=== PATIENT | female | born 1955 | race Caucasian/White ===

== ENCOUNTER 2018-01-21 08:05 | Outpatient (CLI) | payer MEDICARE, MEDICAID ==
[~2018-01-21 08:05] MED LIST: ARIP30TA7 PO; ASPI-529 PO; BUSP10TA16 PO; CALC-506 PO; CHLO25TA2 PO; IBUP-1984 PO; IRBE75TA30 PO; METF500T7 PO; SIMV20TA5 PO; SITA1TBM4 PO; SYN0.112T PO; TRAZ150T78 PO; VENL75CA61 PO
== END 2018-01-21 23:59 | disposition home or self-care (01) ==
LOC: CAR 08:05
DX: F33.3 Major depressive disorder, recurrent, severe with psychotic symptoms (principal); I10 Essential (primary) hypertension; E11.9 Type 2 diabetes mellitus without complications; Z79.899 Other long term (current) drug therapy
CPT/HCPCS: 93005

== ENCOUNTER 2020-12-10 11:45 | Emergency (ER) | payer MEDICARE, MEDICAID ==
[~2020-12-10] VITALS: Ht 162.6 cm; Wt 105.6 kg
[~2020-12-10 11:45] MED LIST changes: +CLIN150C8 PO; +METF-900 PO; -METF500T7 PO; +SIMV-42 PO; -SIMV20TA5 PO
[2020-12-10 13:45] VITALS: BP 155/96
== END 2020-12-10 14:42 | disposition home or self-care (01) ==
LOC: ER 11:46
DX: L25.3 Unspecified contact dermatitis due to other chemical products (principal); M79.641 Pain in right hand; E78.00 Pure hypercholesterolemia, unspecified; I10 Essential (primary) hypertension; E11.9 Type 2 diabetes mellitus without complications; E03.9 Hypothyroidism, unspecified; G89.29 Other chronic pain; F32.9 Major depressive disorder, single episode, unspecified; Z90.710 Acquired absence of both cervix and uterus; Z98.51 Tubal ligation status; Z90.89 Acquired absence of other organs; Z88.8 Allergy status to other drugs, medicaments and biological substances; Z88.1 Allergy status to other antibiotic agents; Z79.82 Long term (current) use of aspirin; Z79.2 Long term (current) use of antibiotics; Z79.899 Other long term (current) drug therapy
CPT/HCPCS: 99283

== ENCOUNTER 2021-10-22 07:08 | Inpatient (IN) | payer MEDICARE, MEDICAID ==
[~2021-10-22] VITALS: Ht 157.5 cm; Wt 92.3 kg
[2021-10-22] MEDS ORDERED: acetaminophen 325mg tablet PO PRN (07:35)
[2021-10-22] MEDS ORDERED: loperamide 2mg capsule PO PRN (07:35)
[2021-10-22] MEDS ORDERED: mag hydrox/Alum hydrox/simeth 30ml oral suspension PO PRN (07:35)
[2021-10-22] MEDS ORDERED: magnesium hydroxide 30ml (MOM) UD suspension PO PRN (07:35)
[2021-10-22 09:25] VITALS: BP 199/92
--- NOTE | 2021-10-22 09:57 | NUR ---
Admission note: Pt admitted today on 5150 from [facility] for gravely disabled. Pt was found on a street corner in [place] under a blanket. She is unable to report who she is, what city she is in or how she arrived. She was dehydrated and is not able to articulate and plan for food, clothing or group home. Pt has history of schizophrenia. Pt at [facility] was not eating or drinking.l
[2021-10-22] MEDS ORDERED: POTA-197 PO (11:32)
[2021-10-22] MEDS ORDERED: ARIP10TA15 PO (11:32)
[2021-10-22] MEDS ORDERED: BUPR-353 PO (11:32)
[2021-10-22] MEDS ORDERED: TRAZ-256 PO (11:32)
[2021-10-22] MEDS ORDERED: SITA1TAB6 PO (11:32)
[2021-10-22] MEDS ORDERED: ibuprofen tablet 400 MG TABLET PO PRN (11:55)
[2021-10-22] MEDS ORDERED: busPIRone 5mg tablet PO PRN (11:55)
--- NOTE | 2021-10-22 13:15 | NUR ---
Daughter and emergency contact:
[2021-10-22] MEDS: metFORMIN 500mg tablet PO SCH (17:37)
[2021-10-22 19:43] VITALS: BP 141/78
[2021-10-22] MEDS ORDERED: non-formulary drug (Sitagliptin Phos/Metformin HCl (Janumet 50-1,000 mg Tablet) 1 TAB) PO SCH (20:00)
[2021-10-22] MEDS: lactobacillus rhamnosus 10,000 MMU CELLS/CAPSULE PO SCH (20:46)
[2021-10-22] MEDS: traZODone 50mg tablet PO SCH (20:46)
[2021-10-22] MEDS: atorvastatin 10mg tablet PO SCH (20:46)
[2021-10-22] MEDS: buPROPion SR 150mg tablet PO SCH (20:46)
[2021-10-22] MEDS: nitrofuran monohydrate/nitrofuran macrocrysal 100 MG (MacroBID) capsule PO SCH (20:47)
[2021-10-22] MEDS: acetaminophen 325mg tablet PO PRN (20:57)
--- NOTE | 2021-10-22 23:12 | NUR ---
Nursing Progress Note: Legal hold: 515 Client on involuntary status for GD Report received from HARDEEP Clements with use of SBAR Why are they here: Pt admitted today on 5150 from [facility] for gravely disabled. Pt was found on a street corner in [place] under a blanket. She is unable to report who she is, what city she is in or how she arrived. She was dehydrated and is not able to articulate and plan for food, clothing or group home. Pt has history of schizophrenia. Pt at [facility] was not eating or drinking. Assessment What has happened this shift: Patient sitting in her room at the beginning of shift. Pleasant and cooperative with care; compliant with medication. HS BS 147. Patient is oriented to person, place and event but explained she did not know how she had gotten to the freeway where she was found. Patient denies SI, HI, A/VH. Patient reported, "I don't know how I'm going to pay for this," talking about hospital stay, medication supplies and meals. She ate HS snack in her room prior to bed; she is observed having difficulty getting to sleep. Patient came out of her room to request shoes because she was "unsure if [she] can stay here." Budget Director explained 515 hold to her and PRN Buspar provided. Patient laying down at this time. S/I, H/I: Denies A/VH: Denies Sleep: Refer to sleep assessment ADL's: Independent Group attendance: NA Were meds taken: Yes Any med S/E: None observed or reported Mental Status Exam Appearance: Neat, appropriately dressed in personal attire Eye contact: Fair Behavior: Pleasant and cooperative, anxious, confused at times, isolative Speech: Rapid, slightly pressured Mood: Anxious Affect: Congruent Thought process: Racing thoughts Thought Content: Feeling frightened, financially stressed about hospital stay, needs shoes Cognition: A/O x2 Insight: Poor Judgment: Poor Interventions PRN's used: Buspar Therapeutic interventions: 1:1 assessment, establishment of rapport, therapeutic conversation, active listening, ensured contract for safety, medication administration/education/monitoring, encouragement of nutrition, encouragement to attend groups. Restraints/seclusion/emergency medication: NA Justification of Continued Inpatient Treatment: Requires interruption of current crisis in a safe and therapeutic environment.
[2021-10-23] MEDS: aspirin 81mg, enteric-coated 1 TAB TABLET.DR PO SCH (07:44)
[2021-10-23] MEDS: ARIPIPRAZOLE 10 MG TABLET PO SCH (07:44)
[2021-10-23] MEDS: buPROPion SR 150mg tablet PO SCH ×2 (07:44→20:54)
[2021-10-23] MEDS: venlafaxine XR 75mg capsule (Q24H) PO SCH (07:44)
[2021-10-23] MEDS: lactobacillus rhamnosus 10,000 MMU CELLS/CAPSULE PO SCH ×2 (07:45→20:54)
[2021-10-23] MEDS: linagliptin 5mg tablet PO SCH (07:45)
[2021-10-23] MEDS: metFORMIN 500mg tablet PO SCH ×2 (07:45→17:39)
[2021-10-23] MEDS: chlorthalidone 25mg tablet PO SCH (07:46)
[2021-10-23] MEDS: potassium Cl 20 mEq SR tablet PO SCH (07:46)
[2021-10-23] MEDS: levoTHYROXINE 112mcg tablet PO SCH (07:46)
[2021-10-23] MEDS: nitrofuran monohydrate/nitrofuran macrocrysal 100 MG (MacroBID) capsule PO SCH ×4 (07:53→17:38)
[2021-10-23 08:00] VITALS: BP_SYST 147
[2021-10-23] MEDS ORDERED: calcium carbonate 500mg tablet PO SCH (08:00)
[2021-10-23] MEDS: losartan 25mg tablet PO SCH (08:03)
[2021-10-23 09:59] LABS: HEMOGLOBIN A1C 6.4 % (4.5-6.2)
[2021-10-23] MEDS ORDERED: IBUP-1985 PO (10:30)
[2021-10-23] MEDS ORDERED: ibuprofen 200mg tablet PO PRN (10:30)
[2021-10-23 10:44] LABS: CHOL/HDL RATIO 4.6 (0.00-4.99); CHOLESTEROL 256 MG/DL (0-200); HDL CHOLESTEROL 56 MG/DL (35-60); LDL CHOLESTEROL 151 MG/DL (50-100); TRIGLYCERIDES 139 MG/DL (20-135)
--- NOTE | 2021-10-23 10:44 | NUR ---
Nursing Progress Note: Legal hold: 515 Client on involuntary status for GD Report received from HARDEEP Schmidt with use of SBAR Why are they here: Pt admitted today on 5150 from [facility] for gravely disabled. Pt was found on a street corner in [place] under a blanket. She is unable to report who she is, what city she is in or how she arrived. She was dehydrated and is not able to articulate and plan for food, clothing or detention. Pt has history of schizophrenia. Pt at [facility] was not eating or drinking. Assessment What has happened this shift: Received pt sitting in the chair in her room awake and asking about her personal belongings at [facility]. Charge nurse, Tyree called to locate pt's property. AM BS 85. Diet changed from regular to Carb Control. Pt isolates when not in the Community Room for meals or snacks. Pt showered. She denies all MH symptoms. Unsure if she has an apartment or not. Reports she rarely check her blood sugar at home and has never been on insulin. S/I, H/I: Denies A/VH: Denies Sleep: Awake this shift ADL's: Independent; pt showered Group attendance: NA Were meds taken: Yes Any med S/E: None observed or reported Mental Status Exam Appearance: Clean, dressed in personal attire Eye contact: Fair Behavior: Pleasant and cooperative, anxious, confused at times, isolative Speech: Rapid, slightly pressured Mood: Anxious Affect: Congruent Thought process: Racing thoughts Thought Content: Feeling frightened, ask constantly who is going to pay the charges here Cognition: A/O x2 Insight: Poor Judgment: Poor Interventions PRN's used: Buspar Therapeutic interventions: 1:1 assessment with therapeutic communication and active listening, medication administration/education/monitoring, reminded pt to follow diabetic diet; education provided and encouragement, q 15 minute safety checks. Restraints/seclusion/emergency medication: NA Justification of Continued Inpatient Treatment: Requires interruption of current crisis in a safe and therapeutic environment.
[2021-10-23] MEDS: calcium carbonate 500mg tablet PO SCH (17:38)
[2021-10-23 19:00] VITALS: BP 127/71
[2021-10-23] MEDS: atorvastatin 10mg tablet PO SCH (20:54)
[2021-10-23] MEDS: traZODone 50mg tablet PO SCH (20:54)
--- NOTE | 2021-10-24 02:37 | NUR ---
Nursing Progress Note: Legal hold: 515 Client on involuntary status for GD Report received from HARDEEP Clements with use of SBAR Why are they here: Pt admitted today on 5150 from [facility] for gravely disabled. Pt was found on a street corner in [place] under a blanket. She is unable to report who she is, what city she is in or how she arrived. She was dehydrated and is not able to articulate and plan for food, clothing or custodial. Pt has history of schizophrenia. Pt at [facility] was not eating or drinking. Assessment What has happened this shift: Patient laying in bed at the beginning of shift. Pleasant and cooperative with care compliant with medication. Denies SI, HI, A/VH; no apparent delusions reported. Patient remained in bed the majority of this shift; only comes out to check the clock. She did not participate in HS snack this shift; observed sleeping and does not appear to be having difficulty. Patient woke up confused about being discharged. She had thought the time on her 5150 report was when she was leaving; junior underwriter explained that is when she is to be reevaluated and she appeared to be understanding. Patient laid back down. S/I, H/I: Denies A/VH: Denies Sleep: Refer to sleep assessment ADL's: Independent Group attendance: NA Were meds taken: Yes Any med S/E: None observed or reported Mental Status Exam Appearance: Neat, appropriately dressed in personal attire Eye contact: Fair Behavior: Pleasant and cooperative, sleeping Speech: Rapid, slightly pressured Mood: Tired, anxious Affect: Congruent Thought process: Racing thoughts Thought Content: Discharge, personal belongings from [facility] Cognition: A/O x2 Insight: Poor Judgment: Poor Interventions PRN's used: None Therapeutic interventions: 1:1 assessment, establishment of rapport, therapeutic conversation, active listening, ensured contract for safety, medication administration/education/monitoring, encouragement of nutrition, encouragement to attend groups. Restraints/seclusion/emergency medication: NA Justification of Continued Inpatient Treatment: Requires interruption of current crisis in a safe and therapeutic environment.
[2021-10-24] MEDS: metFORMIN 500mg tablet PO SCH ×2 (07:55→17:51)
[2021-10-24] MEDS: calcium carbonate 500mg tablet PO SCH ×2 (07:55→17:52)
[2021-10-24] MEDS: ARIPIPRAZOLE 10 MG TABLET PO SCH (07:55)
[2021-10-24] MEDS: aspirin 81mg, enteric-coated 1 TAB TABLET.DR PO SCH (07:57)
[2021-10-24] MEDS: lactobacillus rhamnosus 10,000 MMU CELLS/CAPSULE PO SCH ×2 (07:57→19:54)
[2021-10-24] MEDS: losartan 25mg tablet PO SCH (07:57)
[2021-10-24] MEDS: venlafaxine XR 75mg capsule (Q24H) PO SCH (07:57)
[2021-10-24] MEDS: levoTHYROXINE 112mcg tablet PO SCH (07:57)
[2021-10-24] MEDS: potassium Cl 20 mEq SR tablet PO SCH (07:57)
[2021-10-24] MEDS: buPROPion SR 150mg tablet PO SCH ×2 (07:58→20:07)
[2021-10-24] MEDS: nitrofuran monohydrate/nitrofuran macrocrysal 100 MG (MacroBID) capsule PO SCH ×2 (07:58→17:52)
[2021-10-24] MEDS: linagliptin 5mg tablet PO SCH (07:58)
[2021-10-24] MEDS: chlorthalidone 25mg tablet PO SCH (08:12)
[2021-10-24 08:22] VITALS: BP 141/70
[2021-10-24 11:12] VITALS: BP_SYST 103; BP_SYST 105; BP_SYST 106; BP_DIAS 52; BP_DIAS 57; BP_DIAS 62
[2021-10-24] MEDS ORDERED: ondansetron 4mg rapidly disintigrating tab PO PRN (13:05)
--- NOTE | 2021-10-24 17:15 | NUR ---
Nursing Progress Note: Legal hold: 515 Client on involuntary for GD Report received from nurse with use of SBAR: HARDEEP Schmidt Why are they here: Pt admitted on 5150 from [facility] for gravely disabled. Pt was found on a street corner in [place] under a blanket. She is unable to report who she is, what city she is in or how she arrived. She was dehydrated and is not able to articulate and plan for food, clothing or retirement. Pt has history of schizophrenia. Pt at [facility] was not eating or drinking. Assessment What has happened this shift: This rfp writer took over the care of this patient from another nurse in the afternoon. Per report, pt. was up for breakfast in the Group Room and ate well. However, she c/o dizziness and nausea. Orthostatic V/S obtained and WNL. These symptoms were endorsed to IVELISSE Mullen who ordered PRN Zofran. Pt. was able to shower independently with set-up help only. Afterwards, pt. was observed to be wandering the unit, reading signs on the berry, she appeared guarded and withdrawn from others. Pt. did attend morning group with encouragement, and afterwards this rfp writer introduced herself and established rapport. Pt. appears goal oriented (asking appropriate questions about medical labs). She napped throughout the afternoon, missing a call from her daughter. Pt. was awoken for dinner and continued to report dizziness. She had dinner in her room, and was compliant with her evening medications, however presented with what appeared to be a possible paranoid delusion, stating, "These pills look different from earlier." Will continue to monitor. S/I, H/I: Denies A/VH: Denies, does not appear to be internally preoccupied Sleep: Sleep hours are 7.25, and pt. naps throughout the afternoon ADL's: Pt. requires some direction and encouragement Group attendance: Yes, morning group Were meds taken: Yes Any med S/E: some dizziness and nausea reported. Orthostatic V/S obtained and WNL. This was endorsed to IVELISSE Mullen who ordered PRN Zofran. Mental Status Exam Appearance: Hair and clothing somewhat disheveled r/t laying in bed Eye contact: Moderate Behavior: Cooperative, withdrawn, guarded, and fatigued Speech: Soft, WNL. Responds minimally to direct questions Mood: Guarded Affect: Blunted Thought process: Poverty of thought Thought Content: Appears goal oriented (asking appropriate questions about medical labs), some possible paranoid delusions Cognition: A&O X3 Insight: Poor Judgment: Poor Interventions PRN's used: None Therapeutic interventions: Introduced self and established rapport, maintained a safe and supportive environment, ensured contract for safety, provided clear and simple instructions, encouraged independent performance of ADLs, and maintained Q 15min safety checks. Restraints/seclusion/emergency medication: N/A Justification of Continued Inpatient Treatment: Per IVELISSE Mullen pt. continues to require a safe and supportive environment.
[2021-10-24 20:00] VITALS: BP_SYST 105; BP_SYST 112; BP_SYST 114; BP_DIAS 54; BP_DIAS 56; BP_DIAS 61
[2021-10-24] MEDS: traZODone 50mg tablet PO SCH (20:07)
[2021-10-24] MEDS: atorvastatin 20mg tablet PO SCH (20:13)
[2021-10-24 20:32] VITALS: BP 112/56
--- NOTE | 2021-10-25 04:16 | NUR ---
Nursing Progress Note: Legal hold: 5150 Client on involuntary status for GD Report received from HARDEEP Clements with use of SBAR Why are they here: Pt admitted today on 5150 from [facility] for gravely disabled. Pt was found on a street corner in [place] under a blanket. She is unable to report who she is, what city she is in or how she arrived. She was dehydrated and is not able to articulate and plan for food, clothing or custodial. Pt has history of schizophrenia. Pt at [facility] was not eating or drinking. Assessment What has happened this shift: Patient laying in bed at the beginning of shift. Pleasant and cooperative with care ,compliant with medication. Denies SI, HI, A/VH; no delusions reported. Patient remained in bed the entire shift. S/I, H/I: Denies A/VH: Denies Sleep: slept well throughout the night ADL's: Independent Group attendance: NA Were meds taken: Yes Any med S/E: None observed or reported Mental Status Exam Appearance: Neat, appropriately dressed in personal attire Eye contact: Fair Behavior: Pleasant and cooperative Speech: WNL Mood: "ok" Affect: blunted Thought process: linear Thought Content: focused on discharge Cognition: A/O x2 Insight: Poor Judgment: Poor Interventions PRN's used: None Therapeutic interventions: 1:1 assessment, establishment of rapport, therapeutic conversation, active listening, ensured contract for safety, medication administration/education/monitoring, encouragement of nutrition, encouragement to attend groups. Restraints/seclusion/emergency medication: NA Justification of Continued Inpatient Treatment: Requires interruption of current crisis in a safe and therapeutic environment.
[2021-10-25] MEDS: metFORMIN 500mg tablet PO SCH ×2 (07:30→17:30)
[2021-10-25] MEDS: calcium carbonate 500mg tablet PO SCH ×2 (07:30→17:30)
[2021-10-25 07:45] VITALS: BP 136/73
[2021-10-25] MEDS: potassium Cl 20 mEq SR tablet PO SCH (08:00)
[2021-10-25] MEDS: losartan 25mg tablet PO SCH (08:00)
[2021-10-25] MEDS: aspirin 81mg, enteric-coated 1 TAB TABLET.DR PO SCH (08:00)
[2021-10-25] MEDS: lactobacillus rhamnosus 10,000 MMU CELLS/CAPSULE PO SCH ×2 (08:00→20:00)
[2021-10-25] MEDS: ARIPIPRAZOLE 10 MG TABLET PO SCH (08:00)
[2021-10-25] MEDS: venlafaxine XR 75mg capsule (Q24H) PO SCH (08:00)
[2021-10-25] MEDS: buPROPion SR 150mg tablet PO SCH ×2 (08:00→20:00)
[2021-10-25] MEDS: linagliptin 5mg tablet PO SCH (08:00)
[2021-10-25] MEDS: levoTHYROXINE 112mcg tablet PO SCH (08:00)
[2021-10-25] MEDS: chlorthalidone 25mg tablet PO SCH (08:00)
--- NOTE | 2021-10-25 08:00 | NUR ---
Pt. refused orthostatic vitals.
[2021-10-25] MEDS: nitrofuran monohydrate/nitrofuran macrocrysal 100 MG (MacroBID) capsule PO SCH ×2 (08:30→17:30)
--- NOTE | 2021-10-25 09:34 | NUR ---
Initial: Pt admitted w/ major depressive disorder and UTI per EMR, also w/ hx of DM and A1c 6.4, well controlled and appropriate. Currently on Carb Controlled diet w/ avg intake 63% of meals and consumes some snacks, likely meeting est nutrient needs at this time. Consider liberalizing to Regular diet if PO does not improve as BG mostly WNL this admit. No BM documented, w/ PRN MoM available though not given. Will continue to monitor. Recs: 1. Continue Carb Controlled diet as tolerated; consider Regular diet if PO declines 2. Bowel care PRN 3. Weekly wts Addendum: 10/25/21 at [address] Amended: Links added.
--- NOTE | 2021-10-25 17:44 | NUR ---
Nursing Progress Note: Legal hold: 5249 Client on involuntary status for GD Report received from HARDEEP Schmidt with use of SBAR Why are they here: Pt admitted today on 5150 from [facility] for gravely disabled. Pt was found on a street corner in [place] under a blanket. She is unable to report who she is, what city she is in or how she arrived. She was dehydrated and is not able to articulate and plan for food, clothing or mcfp. Pt has history of schizophrenia. Pt at [facility] was not eating or drinking. Assessment What has happened this shift: RN received pt. awake and sitting in hallway at beginning of shift. RN greeted pt., pt. states she is waiting for coffee. Pt. refused her morning medications. Pt. states, I dont like the way they make me feel. RN informed pt. that she has important medical medications but pt. continued to refuse. Pt. allowed only a partial physical assessment to be completed, refusing bowel sounds. Pt. does not want to disclose her last date of having a BM. Pt. denies all psych symptoms but gives minimal information during interview. S/I, H/I: Denies A/VH: Denies Sleep: Pt. slept 8.75 hrs on noc shift and napped intermittently throughout the day. ADL's: Independent Group attendance: None Were meds taken: Refused Any med S/E: Yes, but will not explain symptoms. Mental Status Exam Appearance: Disheveled, dressed in personal attire Eye contact: WNL Behavior: Pleasant and cooperative Speech: WNL Mood: Affect: blunted Thought process: linear Thought Content: focused on discharge Cognition: A/O x2 Insight: Poor Judgment: Poor Interventions PRN's used: None Therapeutic interventions: 1:1 assessment, establishment of rapport, therapeutic conversation, active listening, ensured contract for safety, medication administration/education/monitoring, encouragement of nutrition, encouragement to attend groups. Restraints/seclusion/emergency medication: NA Justification of Continued Inpatient Treatment: Requires interruption of current crisis in a safe and therapeutic environment.
[2021-10-25 19:18] VITALS: BP_SYST 0
[2021-10-25] MEDS: traZODone 50mg tablet PO SCH (20:28)
[2021-10-25] MEDS: atorvastatin 20mg tablet PO SCH (20:29)
--- NOTE | 2021-10-25 22:32 | NUR ---
Nursing Progress Note: Legal hold: 525 for being gravely disabled Report received from Reid Kevin full charge bookkeeper Why are they here: Pt admitted today on 5150 from [facility] for gravely disabled. Pt was found on a street corner in [place] under a blanket. She is unable to report who she is, what city she is in or how she arrived. She was dehydrated and is not able to articulate and plan for food, clothing or half-way. Pt has history of schizophrenia. Pt at [facility] was not eating or drinking. Assessment What has happened this shift: The patient was isolative to her bed for the majority of the evening. She refused to allow her vital signs done. She refused to have her lungs, and heart assessed. She refused all of her evening medications. She was cooperative with talking with staff. She was asked about why she had refused her medications and she stated, "I'm not taking them anymore. They were making me feel sick" When asked how they were making her sick she seemed confused and couldn't elaborate. Each medication was discussed with her and explained what they were for but she was adamant that she would not take them. She was able to state how she came to be here at [facility] but she could not recall where she was living. She could not verbalize a plan for food, half-way or clothing if she left the hospital. She was asked about when she last had a bowel movement and stated replied "I don't know what that is"She admits to feeling depressed and anxious but denies thoughts to harm herself or anyone else. She denies having auditory or visual hallucinations. Her affect is flat. She appeared disheveled. She denies having family in the area to help her. Her insight and judgement are very poor. She is poorly oriented. Her replies to assessment questions were spontaneous. She reports she slept well last night. She remains gravely disabled and is now refusing medications. She requires prompts for ADLs. Psychiatric stabilization and assessment continues.
[2021-10-26 07:11] VITALS: BP 123/81
[2021-10-26] MEDS: metFORMIN 500mg tablet PO SCH ×2 (07:30→17:30)
[2021-10-26] MEDS: calcium carbonate 500mg tablet PO SCH ×2 (07:30→17:30)
[2021-10-26] MEDS: levoTHYROXINE 112mcg tablet PO SCH (08:00)
[2021-10-26] MEDS: linagliptin 5mg tablet PO SCH (08:00)
[2021-10-26] MEDS: chlorthalidone 25mg tablet PO SCH (08:00)
[2021-10-26] MEDS: lactobacillus rhamnosus 10,000 MMU CELLS/CAPSULE PO SCH ×2 (08:00→20:00)
[2021-10-26] MEDS: aspirin 81mg, enteric-coated 1 TAB TABLET.DR PO SCH (08:00)
[2021-10-26] MEDS: venlafaxine XR 75mg capsule (Q24H) PO SCH (08:00)
[2021-10-26] MEDS: ARIPIPRAZOLE 10 MG TABLET PO SCH (08:00)
[2021-10-26] MEDS: potassium Cl 20 mEq SR tablet PO SCH (08:00)
[2021-10-26] MEDS: buPROPion SR 150mg tablet PO SCH ×2 (08:00→20:00)
[2021-10-26] MEDS: losartan 25mg tablet PO SCH (08:00)
--- NOTE | 2021-10-26 08:00 | NUR ---
Pt. refused orthostatic vitals.
[2021-10-26] MEDS: nitrofuran monohydrate/nitrofuran macrocrysal 100 MG (MacroBID) capsule PO SCH ×2 (08:30→17:30)
--- NOTE | 2021-10-26 17:40 | NUR ---
Nursing Progress Note: Legal hold: 525 Client on involuntary status for GD Report received from HARDEEP Mccann with use of SBAR Why are they here: Pt admitted today on 5150 from [facility] for gravely disabled. Pt was found on a street corner in [place] under a blanket. She is unable to report who she is, what city she is in or how she arrived. She was dehydrated and is not able to articulate and plan for food, clothing or halfway. Pt has history of schizophrenia. Pt at [facility] was not eating or drinking. Assessment What has happened this shift: RN received pt. awake and sitting in [place] at start of shift. Pt. requesting coffee. Pt. appears paranoid and refusing medication. Pt. reports she does not like the way her medications make her feel. RN educated the pt. on why she needs to take her medications, especially her medical medications, but pt. refused. Pt. ate breakfast. Pt. refused physical and 1:1 assessment. Pt. ate lunch and showered. S/I, H/I: Denies A/VH: Denies Sleep: Pt. slept 9.25 hrs on noc shift and napped intermittently throughout the day. ADL's: Independent Group attendance: NA Were meds taken: Refused Any med S/E: Yes, but will not explain symptoms. Mental Status Exam Appearance: clean and neat. Dressed in green unit scrubs. Eye contact: WNL Behavior: Pleasant but paranoid and uncooperative. Speech: WNL Mood: anxious Affect: Flat Thought process: linear Thought Content: Circumstantial. Cognition: A/O x3 (not to circumstance) Insight: Poor Judgment: Poor Interventions PRN's used: None Therapeutic interventions: 1:1 assessment, establishment of rapport, therapeutic conversation, active listening, ensured contract for safety, medication administration/education/monitoring, encouragement of nutrition, encouragement to attend groups. Restraints/seclusion/emergency medication: NA Justification of Continued Inpatient Treatment: Requires interruption of current crisis in a safe and therapeutic environment.
[2021-10-26] MEDS: traZODone 50mg tablet PO SCH (21:00)
[2021-10-26] MEDS: atorvastatin 20mg tablet PO SCH (21:00)
--- NOTE | 2021-10-27 03:06 | NUR ---
Nursing Progress Note: Legal hold: 5249 Client on involuntary status for GD Report received from HARDEEP Kevin with use of SBAR Why are they here: Pt admitted today on 5150 from [facility] for gravely disabled. Pt was found on a street corner in [place] under a blanket. She is unable to report who she is, what city she is in or how she arrived. She was dehydrated and is not able to articulate and plan for food, clothing or penitentiary. Pt has history of schizophrenia. Pt at [facility] was not eating or drinking. Assessment What has happened this shift: Pt isolates to her room the entirety of the shift, mainly sleeping. Pt wakes up when RN calls her name. She makes good eye contact and speaks clearly, but politely refuses assessment and medication. She does agree to eat snack, and eats a sandwich. Pt is refusing blood sugars as well. RN stresses how important it is to monitor her blood sugars and to take her medications, but she just shakes her head and says, "No I can't", but cannot provide a reason why. S/I, H/I: Denies A/VH: Denies Sleep: slept well throughout the night ADL's: Independent Group attendance: NA Were meds taken: refused Any med S/E: None observed or reported Mental Status Exam Appearance: in green scrubs Eye contact: Fair Behavior: Pleasant but resistive to care Speech: WNL Mood: depressed Affect: blunted Thought process: confused Thought Content: JOSIAH Cognition: A/O x2 Insight: Poor Judgment: Poor Interventions PRN's used: None Therapeutic interventions: 1:1 assessment, establishment of rapport, therapeutic conversation, active listening, ensured contract for safety, medication administration/education/monitoring, encouragement of nutrition, encouragement to attend groups. Restraints/seclusion/emergency medication: NA Justification of Continued Inpatient Treatment: Requires interruption of current crisis in a safe and therapeutic environment.
[2021-10-27] MEDS: metFORMIN 500mg tablet PO SCH ×2 (07:30→17:30)
[2021-10-27] MEDS: calcium carbonate 500mg tablet PO SCH ×2 (07:30→17:30)
[2021-10-27] MEDS: ARIPIPRAZOLE 10 MG TABLET PO SCH (08:00)
[2021-10-27] MEDS: linagliptin 5mg tablet PO SCH (08:00)
[2021-10-27] MEDS: levoTHYROXINE 112mcg tablet PO SCH (08:00)
[2021-10-27] MEDS: venlafaxine XR 75mg capsule (Q24H) PO SCH (08:00)
[2021-10-27] MEDS: potassium Cl 20 mEq SR tablet PO SCH (08:00)
[2021-10-27] MEDS: lactobacillus rhamnosus 10,000 MMU CELLS/CAPSULE PO SCH ×2 (08:00→20:00)
[2021-10-27] MEDS: chlorthalidone 25mg tablet PO SCH (08:00)
[2021-10-27] MEDS: losartan 25mg tablet PO SCH (08:00)
[2021-10-27] MEDS: aspirin 81mg, enteric-coated 1 TAB TABLET.DR PO SCH (08:00)
[2021-10-27] MEDS: buPROPion SR 150mg tablet PO SCH ×2 (08:00→20:00)
[2021-10-27] MEDS: nitrofuran monohydrate/nitrofuran macrocrysal 100 MG (MacroBID) capsule PO SCH ×2 (08:30→17:30)
--- NOTE | 2021-10-27 18:00 | NUR ---
Nursing Progress Note: Legal hold: 5249 Client on involuntary status for GD Report received from HARDEEP Mccann with use of SBAR Why are they here: Pt admitted today on 5150 from [facility] for gravely disabled. Pt was found on a street corner in [place] under a blanket. She is unable to report who she is, what city she is in or how she arrived. She was dehydrated and is not able to articulate and plan for food, clothing or care home. Pt has history of schizophrenia. Pt at [facility] was not eating or drinking. Assessment What has happened this shift: RN received pt. asleep in bed at start of shift. Pt. refused vital signs. Pt c/o dizziness. When RN explained to pt. need to assess her blood pressure and pulse because of her dizziness pt. continued to refuse. Pt. refused blood glucose check. Pt refused medications. Pt. c/o of side effects from medications but will not specify her symptoms. RN attempted to explain importance of CBG check and medications but pt. continues to refuse. Pt. awake most of the day and see in the halls pacing at times. Pt. calling her friend and asking for belongings. Pt. continues to deny she has a daughter. Pt. is A&Ox4 and says she is here because she was found on the streets because of her depression. Pt. showered in the afternoon. Pt. found reading her Bible in her room. S/I, H/I: Denies A/VH: Denies Sleep: Pt. slept 8.75 hrs on noc shift and napped intermittently throughout the day. ADL's: Independent Group attendance: NA Were meds taken: Refused Any med S/E: Yes, but will not explain symptoms. Mental Status Exam Appearance: clean and neat. Dressed in green scrub tops and black pants. Eye contact: WNL Behavior: Pleasant but paranoid and uncooperative. Speech: WNL Mood: anxious Affect: Flat Thought process: linear Thought Content: Circumstantial. Cognition: A/O x4 Insight: Poor Judgment: Poor Interventions PRN's used: None Therapeutic interventions: 1:1 assessment, establishment of rapport, therapeutic conversation, active listening, ensured contract for safety, medication administration/education/monitoring, encouragement of nutrition, encouragement to attend groups. Restraints/seclusion/emergency medication: NA Justification of Continued Inpatient Treatment: Requires interruption of current crisis in a safe and therapeutic environment.
[2021-10-27] MEDS: atorvastatin 20mg tablet PO SCH (21:00)
[2021-10-27] MEDS: traZODone 50mg tablet PO SCH (21:00)
--- NOTE | 2021-10-27 21:46 | NUR ---
Nursing Progress Note: Legal hold: 5249 Client on involuntary status for GD Report received from HARDEEP Kevin with use of SBAR Why are they here: Pt admitted today on 515 from [facility] for gravely disabled. Pt was found on a street corner in [place] under a blanket. She is unable to report who she is, what city she is in or how she arrived. She was dehydrated and is not able to articulate and plan for food, clothing or custodial. Pt has history of schizophrenia. Pt at [facility] was not eating or drinking. Assessment What has happened this shift: Pt is sitting up in her chair at shift change. She asks to speak to RN and "ask her a question." She then asks, "They took all my strings from me from my clothing, where are they?" RN asks why she is wondering this, but she does not answer. She refuses physical assessment, blood glucose monitoring, and all medications. RN asks her why she is refusing everything and that staff is worried about her. She responds, "Because the finger sticks hurt and I am sick." RN offered to call MD to get an order for something for her stomach and maybe then she could take her HS medications, but she refuses. RN asks if she has spoken to her family lately and she responds, "some lady called today, but I have no family or children." RN reminds her that she joiner a daughter, which she replies, "well some lady called. " S/I, H/I: Denies A/VH: Denies Sleep: slept well throughout the night ADL's: Independent Group attendance: NA Were meds taken: refused Any med S/E: None observed or reported Mental Status Exam Appearance: in green scrubs Eye contact: Fair Behavior: Pleasant but resistive to care Speech: WNL Mood: depressed Affect: blunted Thought process: confused Thought Content: JOSIAH Cognition: A/O x2 Insight: Poor Judgment: Poor Interventions PRN's used: None Therapeutic interventions: 1:1 assessment, establishment of rapport, therapeutic conversation, active listening, ensured contract for safety, medication administration/education/monitoring, encouragement of nutrition, encouragement to attend groups. Restraints/seclusion/emergency medication: NA Justification of Continued Inpatient Treatment: Requires interruption of current crisis in a safe and therapeutic environment.
[2021-10-28] MEDS: calcium carbonate 500mg tablet PO SCH ×2 (07:30→17:30)
[2021-10-28] MEDS: metFORMIN 500mg tablet PO SCH ×2 (07:30→17:30)
[2021-10-28 08:00] VITALS: BP 0/0
[2021-10-28] MEDS: losartan 25mg tablet PO SCH (08:00)
[2021-10-28] MEDS: venlafaxine XR 75mg capsule (Q24H) PO SCH (08:00)
[2021-10-28] MEDS: buPROPion SR 150mg tablet PO SCH ×2 (08:00→20:00)
[2021-10-28] MEDS: aspirin 81mg, enteric-coated 1 TAB TABLET.DR PO SCH (08:00)
[2021-10-28] MEDS: linagliptin 5mg tablet PO SCH (08:00)
[2021-10-28] MEDS: levoTHYROXINE 112mcg tablet PO SCH (08:00)
[2021-10-28] MEDS: ARIPIPRAZOLE 10 MG TABLET PO SCH (08:00)
[2021-10-28] MEDS: lactobacillus rhamnosus 10,000 MMU CELLS/CAPSULE PO SCH ×2 (08:00→20:00)
[2021-10-28] MEDS: chlorthalidone 25mg tablet PO SCH (08:00)
[2021-10-28] MEDS: potassium Cl 20 mEq SR tablet PO SCH (08:00)
[2021-10-28] MEDS: nitrofuran monohydrate/nitrofuran macrocrysal 100 MG (MacroBID) capsule PO SCH ×2 (08:30→17:30)
[2021-10-28 08:32] VITALS: BP 109/73
--- NOTE | 2021-10-28 17:31 | NUR ---
Nursing Progress Note: Legal hold: 5249 Client on involuntary status for GD Report received from HARDEEP Pitts with use of SBAR Why are they here: Pt admitted today on 5150 from [facility] for gravely disabled. Pt was found on a street corner in [place] under a blanket. She is unable to report who she is, what city she is in or how she arrived. She was dehydrated and is not able to articulate and plan for food, clothing or care home. Pt has history of schizophrenia. Pt at [facility] was not eating or drinking. Assessment What has happened this shift: Received patient while she was sitting in a chair in the dining room. Explained the blood glucose assessment to the patient, but she stated Have you ever had your fingers with a needle in them, it really hurts, Im not doing it because you want me to do it. Attempted to administer morning medications, and patient states Those are not good for me, I know it and you know it. Approximately one hour later, approached the patient in her room, and informed her we had medications that the ordered for her to take while she was here. Patient again stated Im not taking your medications. Patient went to the dining room and ate both meals. Patient sat in the dining room, and in the chair in her room, for long periods of time just resting. Patient nonverbal when asked specific questions regarding how she was feeling, and her last bowel movement. Patient allowed this Nurse to do a 1:1 Patient Assessment but no interview questions regarding the items noted below on this note. Will continue to monitor and communicate with the patient. S/I, H/I: Denies A/VH: Denies Sleep: 8 hrs. of sleep ADL's: Independent Group attendance: No Group Meeting Held Today. Were meds taken: Refused all medications and Blood Glucose Assessment. Any med S/E: None observed or reported Mental Status Exam Appearance: Elderly appearing female with dark brown hair dressed in green unit scrubs. Eye contact: Fair Behavior: Pleasant & Smiles, but not very often. Speech: WNL Mood: Blunted. Affect: Blunted. Thought process: Thought Blocking Thought Content: Thought Blocking Cognition: A/O x2 Insight: Poor Judgment: Poor Interventions PRN's used: None Therapeutic interventions: 1:1 assessment, establishment of rapport, therapeutic conversation, active listening, ensured contract for safety, medication administration/education/monitoring, encouragement of nutrition, encouragement to attend groups. Restraints/seclusion/emergency medication: NA Justification of Continued Inpatient Treatment: Requires interruption of current crisis in a safe and therapeutic environment.
--- NOTE | 2021-10-28 17:54 | NUR ---
Note Update: Patient refused all medications to be administered on day shift. Patient refused orthostatic Blood Pressure check Patient refused Blood Glucose Testing all shift
[2021-10-28] MEDS: atorvastatin 20mg tablet PO SCH (20:17)
[2021-10-28] MEDS: traZODone 50mg tablet PO SCH (20:17)
--- NOTE | 2021-10-29 04:29 | NUR ---
Nursing Progress Note: Legal hold: 5249 Client on involuntary status for GD Report received from HARDEEP Galvez with use of SBAR Why are they here: Pt admitted today on 5150 from [facility] for gravely disabled. Pt was found on a street corner in [place] under a blanket. She is unable to report who she is, what city she is in or how she arrived. She was dehydrated and is not able to articulate and plan for food, clothing or skilled nursing. Pt has history of schizophrenia. Pt at [facility] was not eating or drinking. Assessment What has happened this shift: The patient was napping at shift change. She spent the evening in the community room, her room and hallway napping. Patient refused medication, finger stick, vitals, and assessment tonight. Asked her why she wouldn't take medication, "They make me sick." no further explanation. Patient is irritable with questions, and she shuts them down. She became non-verbal after that. Patient is observed in bed her sleeping. S/I, H/I: Denies A/VH: Denies Sleep: See sleep assessment ADL's: Independent Group attendance: N/A Were meds taken: Refused Any med S/E: None observed or reported Mental Status Exam Appearance: Disheveled older lady in green scrubs Eye contact: Fair Behavior: Pleasant but resistive to care, guarded Speech: WNL or selectively mute Mood: Depressed Affect: Flat Thought process: confused Thought Content: JOSIAH Cognition: A/O x2 Insight: Poor Judgment: Poor Interventions PRN's used: None Therapeutic interventions: 1:1 assessment, establishment of rapport, therapeutic conversation, active listening, ensured contract for safety, medication administration/education/monitoring, encouragement of nutrition, encouragement to attend groups. Restraints/seclusion/emergency medication: NA Justification of Continued Inpatient Treatment: Requires interruption of current crisis in a safe and therapeutic environment.
[2021-10-29] MEDS: metFORMIN 500mg tablet PO SCH ×2 (07:30→17:30)
[2021-10-29] MEDS: calcium carbonate 500mg tablet PO SCH ×2 (07:30→17:30)
[2021-10-29 08:00] VITALS: BP 0/0
[2021-10-29] MEDS: potassium Cl 20 mEq SR tablet PO SCH (08:00)
[2021-10-29] MEDS: buPROPion SR 150mg tablet PO SCH ×2 (08:00→20:04)
[2021-10-29] MEDS: linagliptin 5mg tablet PO SCH (08:00)
[2021-10-29] MEDS: levoTHYROXINE 112mcg tablet PO SCH (08:00)
[2021-10-29] MEDS: ARIPIPRAZOLE 10 MG TABLET PO SCH (08:00)
[2021-10-29] MEDS: aspirin 81mg, enteric-coated 1 TAB TABLET.DR PO SCH (08:00)
[2021-10-29] MEDS: venlafaxine XR 75mg capsule (Q24H) PO SCH (08:00)
[2021-10-29] MEDS: losartan 25mg tablet PO SCH (08:00)
[2021-10-29] MEDS: chlorthalidone 25mg tablet PO SCH (08:00)
[2021-10-29] MEDS: lactobacillus rhamnosus 10,000 MMU CELLS/CAPSULE PO SCH ×2 (08:00→20:04)
[2021-10-29] MEDS: nitrofuran monohydrate/nitrofuran macrocrysal 100 MG (MacroBID) capsule PO SCH ×2 (08:30→17:30)
[2021-10-29 08:34] VITALS: BP 135/76
--- NOTE | 2021-10-29 14:03 | NUR ---
Pt. attended group today. We talked about how we all look at the world differently due to our core beliefs. These core beliefs then inform thoughts and behaviors. Each pt. identified one negative core belief and then wrote out three truths that contradict their negative beliefs to work on thinking differently. Pt. engaged minimally in group today. She sat quietly and listened. When this Academic Affairs Assistant checked in with her about whether she was able to write down a negative core belief, Pt. reported that she was struggling to write one down. She reported to this Academic Affairs Assistant that she isn't sure about anything right now. She can't remember whether she has family or who her renal case manager was at [facility]. She seemed bothered by this and like she did not want to talk about. She did report that she remembers this Academic Affairs Assistant's face and voice from the [facility]. Her demeanor is pleasant and calm. Her mood appears sad and depressive with a congruent affect. She stayed for the whole group but appears a little lost. Her thought process appears disorganized and scattered. Jamaica Tse, BALANCE WHEEL SCREW HOLE TAPPER
--- NOTE | 2021-10-29 16:09 | NUR ---
5250 upheld for GD
--- NOTE | 2021-10-29 17:32 | NUR ---
Nursing Progress Note: Legal hold: 5270 for GD Report received from HARDEEP Mccann with the use of SBAR REASON FOR ADMIT: Patient was brought to [facility] by her who was concerned that patient was hallucinating that the devil was going to get her. Patient is disoriented, disorganized, and unable to articulate a viable plan for food, clothing, and/or residential. Her reports that she has been increasingly agitated and has not been sleeping or eating." Assessment What has happened this shift: Received patient while she was awake in the Dining Room watching TV. Discussed medication administration and Glucose monitoring with the patient, and she adamantly refused. Patient stated I dont need any pills. Patient stayed in the dining room and ate breakfast, then retreated back to her room sitting in a chair by the window most of the day. S/I, H/I: Denies A/VH: Pt talks to herself in her room. Sleep: 8.0 hours ADL's: Independent Group attendance: No Group Meeting Held Today. Were Meds taken: No. Any med S/E: None noted or reported. Mental Status Exam Appearance: Heavy set, middle aged female, disheveled with long dyed blonde hair dressed in green unit scrubs. Eye contact: Good Behavior: Refused medications, glucose assessment and orthostatic vital signs for the past 3 days. Patient is pleasant when speaking. Speech: Clear, audible Mood: Labile Affect: Labile Thought process: Blocked Thought Content: Requested Not to be bothered each time Nurse attempted to administer medications, check glucose or complete orthostatic vitals. Cognition: A/O X 2 Insight: Impaired Judgment: Impaired Interventions PRN's: None Therapeutic interventions: 1:1 assessment, therapeutic communication, active listening, medication administration/education/monitoring, encouragement to come to the dining room for meals, encouragement of personal hygiene, behavior monitoring and intervention as needed; reality orientation, distraction, redirection verbal de-escalation, limit setting, provided positive reinforcement, and maintained Q 15 minute safety checks. Restraints/seclusion/emergency medication: None Justification of Continued Inpatient Treatment: Pt continues to be psychotic with paranoid and jew delusions, she responds to internal stimuli and becomes irritable. Pt remains gravely disabled. She needs further medication adjustment and monitoring.
[2021-10-29 19:05] VITALS: BP 147/80
[2021-10-29 20:00] VITALS: BP_SYST 107; BP_SYST 110; BP_SYST 114; BP_DIAS 55; BP_DIAS 62; BP_DIAS 66
[2021-10-29] MEDS: traZODone 50mg tablet PO SCH (20:04)
[2021-10-29] MEDS: atorvastatin 20mg tablet PO SCH (20:04)
[2021-10-29] MEDS: naphazoline/pheniramine eye 1 DROP BOTTLE EACHEYE PRN (21:46)
--- NOTE | 2021-10-30 03:11 | NUR ---
Nursing Progress Note: Legal hold: 5249 Client on involuntary status for GD Report received from HARDEEP Clements with use of SBAR Why are they here: Pt admitted today on 5150 from [facility] for gravely disabled. Pt was found on a street corner in [place] under a blanket. She is unable to report who she is, what city she is in or how she arrived. She was dehydrated and is not able to articulate and plan for food, clothing or longterm. Pt has history of schizophrenia. Pt at [facility] was not eating or drinking. Assessment What has happened this shift: Patient seen at bedside for 1:1. Asked if she would take medication tonight, and she said yes. "It's all coming back to me. I am remembering things now. I know I'm diabetic and need to control it. I know I need medications and will take them." The patient is friendly, cooperative, and is not refusing anything tonight. She is based in reality tonight. Orthostatic vitals obtained, and she accepted all her HS medications. Patient c/o itchy eyes from allergies, and order was received for Visine eye drops. with good relief. S/I, H/I: Denies A/VH: Denies Sleep: See sleep assessment ADL's: Independent Group attendance: N/A Were meds taken: Refused Any med S/E: None observed or reported Mental Status Exam Appearance: Disheveled older lady in green scrubs Eye contact: Fair Behavior: Pleasant, cooperative, agreeable, guarded Speech: WNL Mood: Depressed Affect: Congruent Thought process: confused Thought Content: Meeting needs Cognition: A/O x2 Insight: Poor Judgment: Poor Interventions PRN's used: Visine eye drops Therapeutic interventions: 1:1 assessment, establishment of rapport, therapeutic conversation, active listening, ensured contract for safety, medication administration/education/monitoring, encouragement of nutrition, encouragement to attend groups. Restraints/seclusion/emergency medication: NA Justification of Continued Inpatient Treatment: Requires interruption of current crisis in a safe and therapeutic environment.
[2021-10-30] MEDS: metFORMIN 500mg tablet PO SCH ×2 (07:39→17:17)
[2021-10-30] MEDS: calcium carbonate 500mg tablet PO SCH ×2 (07:39→17:18)
[2021-10-30] MEDS: venlafaxine XR 75mg capsule (Q24H) PO SCH (07:40)
[2021-10-30] MEDS: linagliptin 5mg tablet PO SCH (07:40)
[2021-10-30] MEDS: chlorthalidone 25mg tablet PO SCH (07:40)
[2021-10-30] MEDS: potassium Cl 20 mEq SR tablet PO SCH (07:40)
[2021-10-30] MEDS: levoTHYROXINE 112mcg tablet PO SCH (07:40)
[2021-10-30] MEDS: buPROPion SR 150mg tablet PO SCH ×2 (07:40→20:06)
[2021-10-30] MEDS: lactobacillus rhamnosus 10,000 MMU CELLS/CAPSULE PO SCH ×2 (07:40→20:06)
[2021-10-30] MEDS: nitrofuran monohydrate/nitrofuran macrocrysal 100 MG (MacroBID) capsule PO SCH ×2 (07:40→17:18)
[2021-10-30] MEDS: aspirin 81mg, enteric-coated 1 TAB TABLET.DR PO SCH (07:40)
[2021-10-30] MEDS: ARIPIPRAZOLE 10 MG TABLET PO SCH (07:40)
[2021-10-30] MEDS: losartan 25mg tablet PO SCH (07:41)
[2021-10-30] MEDS: acetaminophen 325mg tablet PO PRN (07:50)
[2021-10-30 07:52] VITALS: BP 146/82
[2021-10-30 08:00] VITALS: BP_SYST 138; BP_SYST 142; BP_DIAS 66; BP_DIAS 73; BP_DIAS 84
--- NOTE | 2021-10-30 08:49 | NUR ---
Pt. attended group today. Todays group was about the difference between Growth Mindset vs. Fixed Mindset. We learned about the differences and then discussed what aspect of developing a growth mindset they wanted to work on. Pt. engaged appropriately in the group today. Her mood appeared to be bright will a restricted affect. She was more open to sharing her thoughts today and seemed to remember things about her life easier today. Her demeanor was pleasant and calm, her thought process appeared to be less confused today. Her thought content was WNL. She talked about looking forward to returning to her apartment so she could re-arrange it and redesign it. She shared that she would like to try some new things to work toward growing her growth mindset. Jamaica Tse LCSW
--- NOTE | 2021-10-30 15:10 | NUR ---
Reassessment: Currently on Carb Controlled diet w/ mostly 100% intake of meals meeting needs. Noted pt sometimes refusing care and meds. LBM 10/29. No nutrition intervention implemented at this time, will continue to monitor. Recs: 1. Continue Carb Controlled diet as tolerated 2. Bowel care PRN 3. Weekly wts Addendum: 10/30/21 at [address] Amended: Links added.
--- NOTE | 2021-10-30 17:43 | NUR ---
Nursing Progress Note: Legal hold: 5249 Client on involuntary status for GD Report received from HARDEEP Schmidt with use of SBAR Why are they here: Pt admitted today on 5150 from [facility] for gravely disabled. Pt was found on a street corner in [place] under a blanket. She is unable to report who she is, what city she is in or how she arrived. She was dehydrated and is not able to articulate and plan for food, clothing or jail. Pt has history of schizophrenia. Pt at [facility] was not eating or drinking. Assessment What has happened this shift: Received patient while she was sitting on her bed and PCT was taking her orthostatic vital signs. Patient talkative and states I feel great today. Asked patient if I could check her blood sugar. Patient said Yes and I will take my medications too, smiling. Patients fasting blood sugar was 118. Orthostatic blood pressures stable this morning. Patients blood pressure and pulse have a 3 point difference between lying, sitting & standing, within normal limits. Patient pleasant and talkative, speaking to many friends on the phone before breakfast. Patient ambulating frequently in hallways. Patient attended Group Meeting at 1115, and participated. Patient ate lunch and conversed with peers while in the dining room, then took a nap. Patient awakened at 1730 for medication administration. S/I, H/I: Denies A/VH: Denies Sleep: See sleep assessment ADL's: Independent Group attendance: Patient attended the morning group meeting & participated. Were meds taken: Took all medications, without hesitation. Any med S/E: None observed or reported Mental Status Exam Appearance: Dark haired older lady in green unit scrubs Eye contact: Good Behavior: Pleasant & Cooperative. Speech: WNL Mood: I feel great today. Affect: Congruent Thought process: Linear Thought Content: Meeting needs Cognition: A/O x2 Insight: Poor Judgment: Poor Interventions PRN's used: Therapeutic interventions: 1:1 assessment, establishment of rapport, therapeutic conversation, active listening, ensured contract for safety, medication administration/education/monitoring, encouragement of nutrition, encouragement to attend groups. Restraints/seclusion/emergency medication: NA Justification of Continued Inpatient Treatment: Requires interruption of current crisis in a safe and therapeutic environment.
[2021-10-30 19:09] VITALS: BP_SYST 123; BP_SYST 125; BP_SYST 127; BP_DIAS 63; BP_DIAS 64
[2021-10-30] MEDS: traZODone 50mg tablet PO SCH (20:06)
[2021-10-30] MEDS: atorvastatin 20mg tablet PO SCH (20:06)
--- NOTE | 2021-10-31 02:49 | NUR ---
Nursing Progress Note: Legal hold: 5249 Client on involuntary status for GD Report received from HARDEEP Clements with use of SBAR Why are they here: Pt admitted today on 5150 from [facility] for gravely disabled. Pt was found on a street corner in [place] under a blanket. She is unable to report who she is, what city she is in or how she arrived. She was dehydrated and is not able to articulate and plan for food, clothing or senior living. Pt has history of schizophrenia. Pt at [facility] was not eating or drinking. Assessment What has happened this shift: Patient seen at bedside for 1:1. She is quite happy tonight knowing she will go home in next day or so. She has been in contact with friends and family, so she has been assured that her place has been kept ready for her. Her daughter was able to locate her purse and belongings at [facility]. She's tired and it caught up with her, so she chose to stay in bed all night. Patient was compliant with medicine, but declined a snack tonight. S/I, H/I: Denies A/VH: Denies Sleep: See sleep assessment ADL's: Independent Group attendance: N/A Were meds taken: Refused Any med S/E: None observed or reported Mental Status Exam Appearance: Disheveled older lady in green scrubs Eye contact: Fair Behavior: Pleasant, cooperative, agreeable, guarded Speech: WNL Mood: "good" Affect: Congruent Thought process: Linear, goal oriented. Thought Content: Meeting needs Cognition: A/O x2 Insight: Poor Judgment: Poor Interventions PRN's used: Therapeutic interventions: 1:1 assessment, establishment of rapport, therapeutic conversation, active listening, ensured contract for safety, medication administration/education/monitoring, encouragement of nutrition, encouragement to attend groups. Restraints/seclusion/emergency medication: NA Justification of Continued Inpatient Treatment: Requires interruption of current crisis in a safe and therapeutic environment.
[2021-10-31 08:00] VITALS: BP_SYST 129; BP_SYST 135; BP_SYST 144; BP_DIAS 64; BP_DIAS 70; BP_DIAS 73
[2021-10-31] MEDS: naphazoline/pheniramine eye 1 DROP BOTTLE EACHEYE PRN (08:12)
[2021-10-31] MEDS: losartan 25mg tablet PO SCH (08:17)
[2021-10-31] MEDS: venlafaxine XR 75mg capsule (Q24H) PO SCH (08:17)
[2021-10-31] MEDS: lactobacillus rhamnosus 10,000 MMU CELLS/CAPSULE PO SCH ×2 (08:17→20:16)
[2021-10-31] MEDS: potassium Cl 20 mEq SR tablet PO SCH (08:17)
[2021-10-31] MEDS: levoTHYROXINE 112mcg tablet PO SCH (08:17)
[2021-10-31] MEDS: buPROPion SR 150mg tablet PO SCH ×2 (08:18→20:16)
[2021-10-31] MEDS: metFORMIN 500mg tablet PO SCH ×2 (08:18→17:46)
[2021-10-31] MEDS: calcium carbonate 500mg tablet PO SCH ×2 (08:18→17:46)
[2021-10-31] MEDS: nitrofuran monohydrate/nitrofuran macrocrysal 100 MG (MacroBID) capsule PO SCH ×2 (08:18→17:46)
[2021-10-31] MEDS: chlorthalidone 25mg tablet PO SCH (08:18)
[2021-10-31] MEDS: ARIPIPRAZOLE 10 MG TABLET PO SCH (08:18)
[2021-10-31] MEDS: aspirin 81mg, enteric-coated 1 TAB TABLET.DR PO SCH (08:18)
[2021-10-31] MEDS: linagliptin 5mg tablet PO SCH (08:18)
[2021-10-31 08:19] VITALS: BP 106/72
--- NOTE | 2021-10-31 10:30 | NUR ---
Pt. attended group today. We did an art expression exercise where they had to draw what was in their heart. They could express what they were feeling was in their heart through words, pictures or colors. They then completed a Sentence Completion sheet from their heart to encourage and support them. Pt. engaged well in the group today. She [place] a picture of her heart and completed a sentence completion page which she shared with the group. She shared that she is feeling much better. Her mood was bright and upbeat with a congruent affect. She was alert and oriented. She was very hopeful about returning back to her apartment soon and was looking forward to redecorating it. Her thought content and thought process were WNL. Jamaica Tse LCSW
[2021-10-31] MEDS ORDERED: CHLO25TA2 PO (17:44)
[2021-10-31] MEDS ORDERED: TRAZ-256 PO (17:44)
[2021-10-31] MEDS ORDERED: ARIP10TA15 PO (17:44)
[2021-10-31] MEDS ORDERED: BUSP10TA16 PO (17:44)
[2021-10-31] MEDS ORDERED: SIMV-42 PO (17:44)
[2021-10-31] MEDS ORDERED: NITR100C11 PO (17:44)
[2021-10-31] MEDS ORDERED: SITA1TAB6 PO (17:44)
[2021-10-31] MEDS ORDERED: LACT1CAP26 PO (17:44)
[2021-10-31] MEDS ORDERED: IBUP-1985 PO (17:44)
[2021-10-31] MEDS ORDERED: IRBE75TA30 PO (17:44)
[2021-10-31] MEDS ORDERED: BUPR-353 PO (17:44)
[2021-10-31] MEDS ORDERED: VENL75CA61 PO (17:44)
[2021-10-31] MEDS ORDERED: LEVO112T5 PO (17:44)
[2021-10-31] MEDS ORDERED: OSC500T PO (17:44)
[2021-10-31] MEDS ORDERED: POTA-197 PO (17:44)
--- NOTE | 2021-10-31 17:54 | NUR ---
Nursing Progress Note: Legal hold: 5249 Client on involuntary status for GD Report received from HARDEEP Schmidt with use of SBAR Why are they here: Pt admitted today on 5150 from [facility] for gravely disabled. Pt was found on a street corner in [place] under a blanket. She is unable to report who she is, what city she is in or how she arrived. She was dehydrated and is not able to articulate and plan for food, clothing or chcf. Pt has history of schizophrenia. Pt at [facility] was not eating or drinking. Assessment What has happened this shift: Pt was up before breakfast. Pt did have some coffee with creamer and artificial sweetener before her FS BG was checked before breakfast. FS BG AC breakfast was 130. Pt was cooperative with her medications. Pt requested PRN allergy eye drops; Visine A, administered at 0812. Pt's orthostatic VS were D/c'd. Pt denied depression, SI/HI/AH/VH. Pt states she is just anxious to get home. S/I, H/I: Pt denies A/VH: Pt denies Sleep: Pt slept 9.75 hours last night per noc shift report. ADL's: Independent Group attendance: No Were meds taken: Yes Any med S/E: None noted or reported Mental Status Exam Appearance: Dark haired older lady with medium length wavy hair dressed in green unit scrubs. Eye contact: Good Behavior: Pleasant, cooperative, participates in unit activities. Speech: Clear, audible. Mood: Good Affect: Bright, pleasant. Thought process: Linear Thought Content: She is anxious to get home. Cognition: A/O x 4 Insight: Fair Judgment: Fair Interventions PRN's used: Visine A eye drops. Therapeutic interventions: 1:1 assessment, establishment of rapport, therapeutic conversation, active listening, medication administration/education/monitoring, encouragement to attend groups, provided distraction, encouragement, positive reinforcement, and Q 15 minute safety checks. Restraints/seclusion/emergency medication: NA Justification of Continued Inpatient Treatment: Pt required crisis interruption with medication adjustment and management in a safe and therapeutic environment until no longer gravely disabled.
[2021-10-31 19:47] VITALS: BP 130/69
[2021-10-31] MEDS: atorvastatin 20mg tablet PO SCH (20:16)
[2021-10-31] MEDS: traZODone 50mg tablet PO SCH (20:16)
--- NOTE | 2021-10-31 22:26 | NUR ---
Nursing Progress Note Legal hold: 5249 for grave disability Report received from Reid Clements rear load truck driver Why are they here: Pt admitted today on 5150 from [facility] for gravely disabled. Pt was found on a street corner in [place] under a blanket. She is unable to report who she is, what city she is in or how she arrived. She was dehydrated and is not able to articulate and plan for food, clothing or mcfp. Pt has history of schizophrenia. Pt at [facility] was not eating or drinking. Assessment What has happened this shift: The patient was up on the unit. She was friendly and pleasant when approached for the evening assessment. She was alert and oriented. She reports that she is feeling much better than on admit and she is expecting to be discharged tomorrow back to her apartment. She stated that she has an [facility] worker who comes in to help her and her daughter periodically comes and sees her. She is medication compliant and denied medications side effects. She denies having any auditory or visual hallucinations. She denied thoughts to harm herself or anyone else. She did not make any inappropriate or delusional statements. She is well groomed. She appeared to be in good spirits. Her insight and judgement are intact. Replies were logical and linear. Justification of Continued Inpatient Treatment: The patient is planning to be discharged tomorrow back to her apartment.
[2021-11-01 07:26] VITALS: BP 112/78
[2021-11-01] MEDS: levoTHYROXINE 112mcg tablet PO SCH (07:28)
[2021-11-01] MEDS: naphazoline/pheniramine eye 1 DROP BOTTLE EACHEYE PRN (07:37)
[2021-11-01 07:57] LABS: ALANINE AMINOTRANSFERASE 23 U/L (12-78); ALBUMIN 3.4 G/DL (3.4-5.0); ALBUMIN/GLOBULIN RATIO 0.9 (1.1-1.5); ALKALINE PHOSPHATASE 79 IU/L (46-116); ANION GAP 8 (8-16); ASPARTATE AMINO TRANSFERASE 8 U/L (10-37); BILIRUBIN,TOTAL 0.4 MG/DL (0.1-1.0); BLOOD UREA NITROGEN 19 MG/DL (7-18); BUN/CREATININE RATIO 23.2 (6.6-38.0); CALCIUM 9.3 MG/DL (8.5-10.1); CHLORIDE 102 MMOL/L (99-107); CREATININE 0.82 MG/DL (0.40-0.90); GLUCOSE 100 MG/DL (70-104); POTASSIUM 3.5 MMOL/L (3.5-5.1); SODIUM 140 MMOL/L (135-145); TOTAL CARBON DIOXIDE 30.4 MMOL/L (24-32); TOTAL PROTEIN 7.1 G/DL (6.4-8.2); eGFR 70 ML/MIN
[2021-11-01] MEDS: linagliptin 5mg tablet PO SCH (08:37)
[2021-11-01] MEDS: buPROPion SR 150mg tablet PO SCH (08:37)
[2021-11-01] MEDS: potassium Cl 20 mEq SR tablet PO SCH (08:37)
[2021-11-01] MEDS: lactobacillus rhamnosus 10,000 MMU CELLS/CAPSULE PO SCH (08:37)
[2021-11-01] MEDS: venlafaxine XR 75mg capsule (Q24H) PO SCH (08:37)
[2021-11-01] MEDS: ARIPIPRAZOLE 10 MG TABLET PO SCH (08:37)
[2021-11-01] MEDS: metFORMIN 500mg tablet PO SCH (08:38)
[2021-11-01] MEDS: calcium carbonate 500mg tablet PO SCH (08:38)
[2021-11-01 08:42] VITALS: BP_SYST 78
[2021-11-01] MEDS: aspirin 81mg, enteric-coated 1 TAB TABLET.DR PO SCH (08:42)
[2021-11-01] MEDS: losartan 25mg tablet PO SCH (08:42)
[2021-11-01] MEDS: chlorthalidone 25mg tablet PO SCH (08:42)
[2021-11-01] MEDS ORDERED: nitrofuran monohydrate/nitrofuran macrocrysal 100 MG (MacroBID) capsule PO SCH (10:10)
--- NOTE | 2021-11-01 10:30 | NUR ---
Per IVELISSE Mullen, pt. to continue taking Macrobid 100mg BID X5 more days. Medication administered.
--- NOTE | 2021-11-01 11:30 | NUR ---
Discharge Note: Pt. ambulated off the unit accompanied by staff to [facility] vehicle which will be transporting her home. Belongings inventoried and returned to pt. by Tech, however strings of sweatshirt had been cut off and could not be returned, pt. reported understanding. This show card writer reviewed medications and discharge instructions with pt. and she reported understanding. Prescriptions for medications were sent to pt's preferred pharmacy, and she will call the client manager large law of her place of residence when she returns home who will let her into her house. Pt. is able to contract for safety and is A&O X4.
[2021-11-01] MEDS ORDERED: nitrofurantoin macrocrystal 100mg capsule PO SCH (17:30)
== END 2021-11-01 11:30 | disposition home or self-care (01) | DRG 885 ==
LOC: ADULT MH 09:31
PROVIDERS: ADMIT Psychiatry & Neurology Psychiatry; ATTEND Psychiatry & Neurology Psychiatry
DX: F33.2 Major depressive disorder, recurrent severe without psychotic features (principal); N39.0 Urinary tract infection, site not specified; F42.9 Obsessive-compulsive disorder, unspecified; E03.9 Hypothyroidism, unspecified; E11.9 Type 2 diabetes mellitus without complications; E78.5 Hyperlipidemia, unspecified; E86.0 Dehydration; R11.0 Nausea; F60.9 Personality disorder, unspecified; F34.1 Dysthymic disorder; F41.9 Anxiety disorder, unspecified; I10 Essential (primary) hypertension; Z20.822 Contact with and (suspected) exposure to COVID-19; Z79.82 Long term (current) use of aspirin; Z79.84 Long term (current) use of oral hypoglycemic drugs; Z79.890 Hormone replacement therapy; Z79.899 Other long term (current) drug therapy; Z87.891 Personal history of nicotine dependence; Z88.1 Allergy status to other antibiotic agents; Z91.012 Allergy to eggs
CPT/HCPCS: 36415; 80053; 80061; 82948; 83036; 84443; 87081

== ENCOUNTER 2022-04-02 11:42 | Emergency (ER) | payer MEDICARE, MEDICAID ==
[~2022-04-02] VITALS: Ht 162.6 cm; Wt 102.3 kg
[~2022-04-02 11:42] MED LIST changes: +ARIP10TA15 PO; -ARIP30TA7 PO; +BUPR-353 PO; -CALC-506 PO; -CLIN150C8 PO; -IBUP-1984 PO; +IBUP-1985 PO; +LACT1CAP26 PO; +LEVO112T5 PO; -METF-900 PO; +NITR100C11 PO; +OSC500T PO; +POTA-197 PO; +SITA1TAB6 PO; -SITA1TBM4 PO; -SYN0.112T PO; +TRAZ-256 PO; -TRAZ150T78 PO
[2022-04-02 11:55] VITALS: BP 159/75
== END 2022-04-02 13:40 | disposition home or self-care (01) ==
LOC: ER 11:43
DX: S00.83XA Contusion of other part of head, initial encounter (principal); I10 Essential (primary) hypertension; E03.9 Hypothyroidism, unspecified; G89.29 Other chronic pain; M54.50 Low back pain, unspecified; Z88.5 Allergy status to narcotic agent; Z88.1 Allergy status to other antibiotic agents; Z88.8 Allergy status to other drugs, medicaments and biological substances; Z90.710 Acquired absence of both cervix and uterus; Z98.51 Tubal ligation status; X58.XXXA Exposure to other specified factors, initial encounter; Y93.89 Activity, other specified; Y92.89 Other specified places as the place of occurrence of the external cause; Y99.8 Other external cause status
CPT/HCPCS: 70450; 99284

== ENCOUNTER 2022-04-26 03:57 | Emergency (ER) | payer MEDICARE, MEDICAID ==
[~2022-04-26] VITALS: Ht 160 cm; Wt 100.2 kg
[2022-04-26 12:46] LABS: BASOPHILS # (AUTO) 0.1 X10'3 (0-0.2); BASOPHILS % (AUTO) 0.4 % (0-1); EOSINOPHILS # (AUTO) 0.3 X10'3 (0-0.9); EOSINOPHILS % (AUTO) 2.3 % (0-6); HEMATOCRIT 40.3 % (35.0-45.0); HEMOGLOBIN 13.7 g/dl (12.0-16.0); LYMPHOCYTES # (AUTO) 3.1 X10'3 (1.1-4.8); MEAN CORPUSCULAR HEMOGLOBIN 30.4 PG (27.0-31.0); MEAN CORPUSCULAR VOLUME 89.4 FL (78-98); MEAN PLATELET VOLUME 7.9 FL (7.4-10.4); MONOCYTES % (AUTO) 7.7 % (2-12); NEUTROPHILS # (AUTO) 8.1 X10'3 (1.8-7.7); NEUTROPHILS % (AUTO) 64.6 % (42-75); PLATELET COUNT 358 X10'3 (140-440); RED CELL DISTRIBUTION WIDTH 13.4 % (11.5-14.5); WHITE BLOOD COUNT 12.6 X10'3 (4.5-11.0)
[2022-04-26 12:53] LABS: ALANINE AMINOTRANSFERASE 21 U/L (12-78); ALBUMIN 4.3 G/DL (3.4-5.0); ALKALINE PHOSPHATASE 96 IU/L (46-116); ANION GAP 11 (8-16); ASPARTATE AMINO TRANSFERASE 18 U/L (10-37); BILIRUBIN,TOTAL 1.1 MG/DL (0.1-1.0); BLOOD UREA NITROGEN 25 MG/DL (7-18); CALCIUM 9.7 MG/DL (8.5-10.1); CHLORIDE 95 MMOL/L (99-107); CREATININE 1.04 MG/DL (0.40-0.90); ETHANOL < 0.010 GM/DL (0.0-0.010); GLUCOSE 137 MG/DL (70-104); SODIUM 137 MMOL/L (135-145); TOTAL CARBON DIOXIDE 31.5 MMOL/L (24-32); TOTAL PROTEIN 8.4 G/DL (6.4-8.2); eGFR 53 ML/MIN
[2022-04-26 12:58] LABS: POTASSIUM 2.9 MMOL/L (3.5-5.1)
[2022-04-26] MEDS ORDERED: potassium Cl 20 mEq SR tablet PO ONE (13:05)
[2022-04-26] MEDS ORDERED: diazepam 5mg tablet PO ONE (13:05)
[2022-04-26 13:36] LABS: CLARITY,URINE SLIGHTLY CLOUDY (Clear); COLOR,URINE YELLOW (Yellow); GLUCOSE, URINE NEGATIVE (Neg); KETONES,URINE NEGATIVE (Neg); LEUKOCYTE ESTERASE ,URINE TRACE (Neg); NITRITES, URINE NEGATIVE (Neg); OCCULT BLOOD,URINE SMALL (Neg); PH,URINE 5.5 (4.8-8.0); PROTEIN,URINE NEGATIVE (Neg); UROBILINOGEN,URINE 0.2 E.U/dL (0.2-1.0)
[2022-04-26 13:40] LABS: URINE AMPHETAMINE SCREEN NEGATIVE (Neg); URINE BARBITUATE SCREEN NEGATIVE (Neg); URINE BENZODIAZEPINES SCREEN NEGATIVE (Neg); URINE CANNABINOID SCREEN NEGATIVE (Neg); URINE COCAINE SCREEN NEGATIVE (Neg); URINE METHADONE SCREEN NEGATIVE (Neg); URINE OPIATE SCREEN NEGATIVE (Neg); URINE PHENCYCLIDINE SCREEN NEGATIVE (Neg)
[2022-04-26 13:41] LABS: UA COLLECTION TYPE CLN CATCH MIDSTREAM
[2022-04-26 13:42] LABS: SQUAMOUS EPITHELIAL CELL,UR MANY /LPF (FEW)
[2022-04-26 13:44] LABS: RBC,URINE 0-2 /HPF (0-2); WBC,URINE 0-4 /HPF (0-4)
[2022-04-26 13:45] LABS: BACTERIA,URINE FEW /HPF (Neg)
--- NOTE | 2022-04-26 19:35 | NUR ---
Patient brought in w/c from Main ED to ED OF bed 23. No distress observed. Continue to monitor.
[2022-04-26] MEDS ORDERED: SITA1TBM4 PO (19:46)
[2022-04-26] MEDS ORDERED: OSC500T PO (19:46)
[2022-04-26] MEDS ORDERED: SIMV-42 PO (19:46)
[2022-04-26] MEDS ORDERED: CHLO25TA10 PO (19:46)
[2022-04-26] MEDS ORDERED: BUPR150T8 PO (19:46)
[2022-04-26] MEDS ORDERED: CLOM75CA2 PO (19:46)
[2022-04-26] MEDS ORDERED: FOSI20TA97 PO (19:46)
[2022-04-26] MEDS ORDERED: LEVO112T5 PO (19:46)
--- NOTE | 2022-04-26 20:09 | NUR ---
Packet Faxed to [facility] by [facility].
--- NOTE | 2022-04-26 21:11 | NUR ---
Patient given a warm blanket. No distress observed. Continue to monitor.
--- NOTE | 2022-04-26 21:26 | NUR ---
Patient ambulatory, steady gait to BR. No distress observed. Continue to monitor.
--- NOTE | 2022-04-26 22:26 | NUR ---
Patient sleeping on right side. No distress observed. Continue to monitor.
--- NOTE | 2022-04-27 00:19 | NUR ---
[place] sleeping on left side. No distress observed. Continue to monitor.
--- NOTE | 2022-04-27 02:15 | NUR ---
Patient back to bed after getting up to use the BR. Patient laying on left side. No distress observed. Continue to monitor.
[2022-04-27] MEDS ORDERED: acetaminophen 325mg tablet PO ONE (02:40)
--- NOTE | 2022-04-27 02:50 | NUR ---
Patient asking for something for a LUCIANO. Patient given Tylenol. Continue to monitor.
--- NOTE | 2022-04-27 04:25 | NUR ---
Patient is sleeping. No distress observed. Continue to monitor.
--- NOTE | 2022-04-27 06:30 | NUR ---
patient asleep in bed, no acute distress or discomfort noted
[2022-04-27] MEDS ORDERED: aspirin 81mg tab.chew PO SCH (08:00)
[2022-04-27] MEDS ORDERED: lisinopril 20mg tablet PO SCH (08:00)
[2022-04-27] MEDS ORDERED: chlorthalidone 25mg tablet PO SCH (08:00)
[2022-04-27] MEDS ORDERED: calcium carbonate 500mg tablet PO SCH (08:00)
[2022-04-27] MEDS ORDERED: buPROPion SR 150mg tablet PO SCH (08:00)
[2022-04-27] MEDS ORDERED: levoTHYROXINE 112mcg tablet PO SCH (08:00)
[2022-04-27] MEDS: metFORMIN 500mg tablet PO SCH ×2 (08:34→20:59)
--- NOTE | 2022-04-27 08:40 | NUR ---
pharmacy bringing medication
[2022-04-27] MEDS: linagliptin 5mg tablet PO SCH ×2 (09:07→20:59)
--- NOTE | 2022-04-27 09:51 | NUR ---
mental health at bedside, no acute distress or discomfort
--- NOTE | 2022-04-27 13:50 | NUR ---
repeat covid sent to lab
--- NOTE | 2022-04-27 13:50 | NUR ---
per transfer center pending negative covid result. results to be faxed to [facility] [phone] nurse report at [phone]
--- NOTE | 2022-04-27 16:35 | NUR ---
patient in bed, no complaints or concerns
--- NOTE | 2022-04-27 17:17 | NUR ---
nurse to nurse report given at this time, advised to call once transport arrives for heads up
--- NOTE | 2022-04-27 17:19 | NUR ---
per [facility] patient will be transported to facility by [facility] at 0715 tomorrow
[2022-04-27] MEDS ORDERED: atorvastatin 10mg tablet PO SCH (21:00)
[2022-04-28] MEDS ORDERED: traZODone 50mg tablet PO SCH (02:39)
--- NOTE | 2022-04-28 03:11 | NUR ---
PT REQUESTED NIGHTLY TRAZADONE TO HELP SLEEP. 100MG GIVEN PER MD ORDER.
[2022-04-28 16:01] VITALS: BP 112/78
== END 2022-04-28 16:16 ==
LOC: ER 03:58
DX: F29 Unspecified psychosis not due to a substance or known physiological condition (principal); Z20.822 Contact with and (suspected) exposure to COVID-19; F41.9 Anxiety disorder, unspecified; E87.6 Hypokalemia; K08.89 Other specified disorders of teeth and supporting structures; E78.00 Pure hypercholesterolemia, unspecified; I10 Essential (primary) hypertension; E11.9 Type 2 diabetes mellitus without complications; E03.9 Hypothyroidism, unspecified; G89.29 Other chronic pain; M54.50 Low back pain, unspecified; Z88.1 Allergy status to other antibiotic agents; Z88.5 Allergy status to narcotic agent; Z88.8 Allergy status to other drugs, medicaments and biological substances; Z90.710 Acquired absence of both cervix and uterus; Z98.51 Tubal ligation status
CPT/HCPCS: 36415; 80053; 80305; 80320; 81001; 84132; 84443; 85025; 87811; 99285

== ENCOUNTER 2025-03-11 14:10 | Emergency (ER) | payer MEDICARE, MEDICAID ==
[~2025-03-11] VITALS: Ht 162.6 cm; Wt 94.2 kg
[~2025-03-11 14:10] MED LIST changes: -ARIP10TA15 PO; -BUPR-353 PO; -BUSP10TA16 PO; +CALC-1008 PO; -CHLO25TA2 PO; -IBUP-1985 PO; -IRBE75TA30 PO; -LACT1CAP26 PO; +LORA-512 PO; -NITR100C11 PO; -OSC500T PO; -POTA-197 PO; -SITA1TAB6 PO; +SITA1TBM4 PO; -VENL75CA61 PO; +VORT10TA PO
[2025-03-11 14:12] VITALS: BP 146/80; PULSE 105; TEMP 97.7; O2SAT 97
--- NOTE | 2025-03-11 14:57 | RADIOLOGY REPORT ---
INDICATION: back pain COMPARISON: None TECHNIQUE: 2 views of the lumbar spine were obtained. FINDINGS: Mild retrolisthesis of L3 on L4. Severe multilevel degenerative disc disease of the lumbosacral spine. No acute fracture, vertebral compression deformity or aggressive osseous lesions. The paravertebral soft tissues are grossly unremarkable. IMPRESSION: No acute fracture.
--- NOTE | 2025-03-11 15:10 | Physician Documentation ---
History of Present Illness ~ Chief Complaint: Back Pain Stated Complaint: BACK/HIP PAIN Time Seen by MD: 14:25 [facility] Allergies: Coded Allergies: hydromorphone (Verified Allergy, Intermediate, 03/11/25) BLOOD PRESSURE DROPS amoxicillin (Unverified Allergy, Unknown, HIVES, 12/10/20) ziprasidone HCl (Verified Allergy, Unknown, 12/10/20) ziprasidone mesylate (Verified Allergy, Unknown, 12/10/20) Uncoded Allergies: EGGS, COFFEE, ALCOHOL (Allergy, Intermediate, 03/13/15) DIARRHEA Scheduled Aspirin (Baby Aspirin), 1 TAB PO DAILY, (Reported) Calcium Carbonate/Vitamin D3 (Oyster Shell Calcium + D Tab), 1 TAB PO BID, (Reported) Celecoxib (Celebrex), 1 CAP PO DAILY Diclofenac Sodium (Diclofenac Sodium), 1 APPLIC TOP Q6H Levothyroxine Sodium (Levothyroxine Sodium), 1 TAB PO DAILY, (Reported) Lidocaine (Lidocaine), 1 PATCH TOP DAILY Loratadine* (Alavert*), 1 TAB PO DAILY, (Reported) Simvastatin* (Zocor*), 1 TAB PO HS, (Reported) Sitagliptin Phos/Metformin Hcl (Janumet Xr 50-1,000 Mg Tablet), 1 TAB PO BID, (Reported) Trazodone HCl (Trazodone HCl), 1 TAB PO HS Vortioxetine Hydrobromide (Brintellix), 1 TAB PO DAILY Past Medical History Past Medical History: High Cholesterol, Hypertension, Diabetes, Hypothyroidism, Chronic Back Pain, Bipolar, Depression Past Surgical History: , hysterectomy, tonsillectomy, tubal ligation Alcohol Use: Rarely Drug Use: none Lives In: Home Review of Systems All Other Systems at this time: Reviewed and Negative Musculoskeletal: Reports: see HPI Physical Exam Physical Exam Vital Signs: RN Vital Signs have been reviewed: Yes, Temperature: 97.7, Source: Temporal, Heart Rate: 105, Respiratory Rate: 18, BP: 146/80, Pulse Oximetry: 97, Weight: 94.200 General Appearance: alert, WD/WN, no apparent distress BacK: no CVA tenderness, no vertebral tenderness, tender (SI joint tenderness right side. no saddle para. ) Progress Results/Orders Results/Orders Orders - JAMAICA STANLEY UPHOLSTERY TECHNICIAN Lumbar Spine Limited (03/11/25 14:17) Lidocaine 5% Patch (Lidoderm 5% Patch) (03/11/25 15:30) Completed Orders - JAMAICA STANLEY UPHOLSTERY TECHNICIAN Lumbar Spine Limited (03/11/25 14:17) Ketorolac Trometh 15mg/Ml Vial (Toradol (03/11/25 15:30) Cyclobenzaprine Tablet (Flexeril Tablet) (03/11/25 15:30) Medications Received in ER Medications (Trade) Dose Ordered Sig/Mary Route PRN Reason Start Time Stop Time Status Last Admin Dose Admin (Toradol injection) 30 mg ONCE ONCE IM 03/11/25 15:30 03/11/25 15:31 DC 03/11/25 15:46 30 MG (Flexeril tablet) 10 mg ONCE ONCE PO 03/11/25 15:30 03/11/25 15:31 DC 03/11/25 15:43 10 MG (Lidoderm 5% Patch) 1 patch ONCE TP 03/11/25 15:30 03/11/25 15:46 1 PATCH Vital Signs 03/11/25 03/11/25 14:12 15:46 Temp 97.7 Pulse 105 Resp 18 18 B/P (MAP) 146/80 Pulse Ox 97 EKG/XRAY/CT/US/VASC/MRI Bone/Soft Tissue X-Ray (Spine) : Interpreted By: radiologist Additional Comment INDICATION: back pain COMPARISON: None TECHNIQUE: 2 views of the lumbar spine were obtained. FINDINGS: Mild retrolisthesis of L3 on L4. Severe multilevel degenerative disc disease of the lumbosacral spine. No acute fracture, vertebral compression deformity or aggressive osseous lesions . The paravertebral soft tissues are grossly unremarkable. IMPRESSION: No acute fracture. Departure Time of Disposition: 16:09 Disposition: 01 HOME / SELF CARE / HOMELESS Impression: Primary Impression: Sciatica Additional Impression: Back problem Condition: Stable Discharge Instructions: Chronic Back Pain, Acute Back Pain, Adult Additional Instructions: Follow-up with your primary care provider for further treatment and evaluation of your lower back pain. Use ice or heat for comfort take medications as prescribed. Referrals: NO PRIMARY CARE PROVIDER (PCP) Prescriptions Diclofenac Sodium (Diclofenac Sodium) 1 % Gel..gram. 1 APPLIC TOP Q6H for 21 Days, #100 GM 0 Refills Prov: JAMAICA STANLEY NP 03/11/25 Lidocaine (Lidocaine) 5 % Adh..patch 1 PATCH TOP DAILY for 30 Days, #30 PATCH 0 Refills Prov: JAMAICA STANLEY NP 03/11/25 Celecoxib (Celebrex) 200 Mg Capsule 1 CAP PO DAILY for pain for 30 Days, #30 CAP 0 Refills Prov: JAMAICA STANLEY NP 03/11/25 Education Educated: Patient Educated regarding: diagnosis, treatment, need for follow up Signature Scribe Signature: no scribe Attestation: The note accurately reflects work and decisions made by me.Jamaica MOORE 03/11/25 15:09 JAMAICA STANLEY NP Mar 11, 2025 15:10
[2025-03-11 15:46] VITALS: RESP 18
[2025-03-11] MEDS: ketorolac trometh 15mg/ml vial 15 MG/ML ML IM ONE (15:46)
[2025-03-11] MEDS ORDERED: LIDO700A47 TOP (16:17)
[2025-03-11] MEDS ORDERED: DICL100G59 TOP (16:17)
[2025-03-11] MEDS ORDERED: CELE-80 PO (16:17)
== END 2025-03-11 16:23 | disposition home or self-care (01) ==
LOC: ER 14:10
DX: M54.31 Sciatica, right side (principal); E03.9 Hypothyroidism, unspecified; E11.9 Type 2 diabetes mellitus without complications; E78.00 Pure hypercholesterolemia, unspecified; F41.9 Anxiety disorder, unspecified; I10 Essential (primary) hypertension; Z88.0 Allergy status to penicillin; Z88.5 Allergy status to narcotic agent; Z90.710 Acquired absence of both cervix and uterus
CPT/HCPCS: 72100; 96372; 99283; J1885

== ENCOUNTER 2025-04-15 12:34 | Outpatient (CLI) | payer MEDICARE, MEDICAID ==
[~2025-04-15 12:34] MED LIST changes: +CELE-80 PO; +DICL100G59 TOP; +LIDO700A47 TOP
--- NOTE | 2025-04-15 17:15 | VASCULAR REPORT ---
BILATERAL LOWER EXTREMITY VENOUS DUPLEX REASON FOR EXAMINATION: Bilateral lower extremity pain and swelling. Left calf varicose veins. COMPARISON: None DEEP VENOUS THROMBOSIS EXAMINATION: TECHNIQUE: Using real-time freeze-frame technique with the 6 MHz small parts transducer, multiple lo ngitudinal and transverse sections were obtained. Simultaneous color flow Doppler imaging was perfor med. FINDINGS: There is good visualization of the deep venous system with no intraluminal filling defects identified. Normal venous compressibility is seen above the calf and there is flow augmentation. Color flow Doppler imaging is unremarkable. There is a renae's cyst in the right popliteal fossa measuring 5.1 x 1.8 x 2.1 cm. There is a Renae's cyst in the left popliteal fossa measuring 6.4 x 1.3 x 2.1 cm. INSUFFICIENCY EXAMINATION: TECHNIQUE: Duplex evaluation of the bilateral lower extremity superficial venous system was performed. The patie nt was examined in a standing position. Provocative maneuvers for reflux (retrograde venous flow) inc luding Valsalva maneuver and, when indicated, distal manual compression. FINDINGS: RIGHT DEEP SYSTEM: Common Femoral Vein: no significant reflux Femoral Vein: no significant reflux Popliteal Vein: no significant reflux RIGHT SUPERFICIAL SYSTEM: Saphenofemoral Junction: the proximal GSV diameter measures 7 mm Greater Saphenous Vein at the: Upper Thigh: 7 mm diameter; no significant reflux Mid Thigh: Approximately 4.4 seconds of reflux Lower Thigh: Not seen Calf: no significant reflux Small Saphenous Vein: no significant reflux LEFT DEEP SYSTEM: Common Femoral Vein: no significant reflux Femoral Vein: no significant reflux Popliteal Vein: no significant reflux LEFT SUPERFICIAL SYSTEM: Saphenofemoral Junction: the proximal GSV diameter measures 7 mm Greater Saphenous Vein at the: Upper Thigh: no significant reflux Lower Thigh: no significant reflux Calf: Approximately 2 seconds of reflux Small Saphenous Vein: no significant reflux IMPRESSION: No evidence of DVT in bilateral lower extremities. Superficial venous reflux in the right greater saphenous vein at the level of mid thigh and in the le ft greater saphenous vein at the calf.
== END 2025-04-15 23:59 | disposition home or self-care (01) ==
LOC: VAS 12:34
PROVIDERS: ATTEND Family Medicine
DX: I87.2 Venous insufficiency (chronic) (peripheral) (principal)
CPT/HCPCS: 93970

== ENCOUNTER 2025-08-26 12:50 | Emergency (ER) | payer MEDICARE, MEDICAID ==
[~2025-08-26] VITALS: Ht 162.6 cm; Wt 113.3 kg
[2025-08-26 12:53] VITALS: BP 159/63; PULSE 102; RESP 16; O2SAT 94
[2025-08-26] MEDS ORDERED: CIPR2.5D21 RIGHTEYE (14:13)
--- NOTE | 2025-08-26 14:13 | Physician Documentation ---
History of Present Illness ~ Chief Complaint: Eye Pain Stated Complaint: EYE PAIN Time Seen by MD: 13:53 Primary Medical Doctor: [facility] Source: patient Mode of Arrival: POV Exam Limitations: no limitations HPI 70-year-old female noticed right eyelid swelling at the top as well as a pimple to eyelash starting yesterday. No visual changes. Medication Reconciliation Allergies: Coded Allergies: hydromorphone (Verified Allergy, Intermediate, 03/11/25) BLOOD PRESSURE DROPS amoxicillin (Unverified Allergy, Unknown, HIVES, 12/10/20) ziprasidone HCl (Verified Allergy, Unknown, 12/10/20) ziprasidone mesylate (Verified Allergy, Unknown, 12/10/20) Uncoded Allergies: EGGS, COFFEE, ALCOHOL (Allergy, Intermediate, 03/13/15) DIARRHEA Scheduled Aspirin (Baby Aspirin), 1 TAB PO DAILY, (Reported) Calcium Carbonate/Vitamin D3 (Oyster Shell Calcium + D Tab), 1 TAB PO BID, (Reported) Celecoxib (Celebrex), 1 CAP PO DAILY Ciprofloxacin Hcl Ophth* (Ciloxan 0.35 Ophth Drops*), 1 DROP RIGHTEYE Q6H Diclofenac Sodium (Diclofenac Sodium), 1 APPLIC TOP Q6H Levothyroxine Sodium (Levothyroxine Sodium), 1 TAB PO DAILY, (Reported) Lidocaine (Lidocaine), 1 PATCH TOP DAILY Loratadine* (Alavert*), 1 TAB PO DAILY, (Reported) Simvastatin* (Zocor*), 1 TAB PO HS, (Reported) Sitagliptin Phos/Metformin Hcl (Janumet Xr 50-1,000 Mg Tablet), 1 TAB PO BID, (Reported) Trazodone HCl (Trazodone HCl), 1 TAB PO HS Vortioxetine Hydrobromide (Brintellix), 1 TAB PO DAILY Past Medical History Past Medical History: High Cholesterol, Hypertension, Diabetes, Hypothyroidism, Chronic Back Pain, Bipolar, Depression Past Surgical History: noncontributory, , hysterectomy, tonsillectomy, tubal ligation Alcohol Use: Rarely Drug Use: none Lives In: Home Occupation: disabled Review of Systems All Other Systems at this time: Reviewed and Negative Eyes: Reports: see HPI Physical Exam Vital Signs: RN Vital Signs have been reviewed: Yes, Temperature: 98.2, Heart R ate: 102, Respiratory Rate: 16, BP: 159/63, Pulse Oximetry: 94, Weight: 113.300 Oxygen Flow Rate: 0 Physical Exam General: Alert, no apparent distress. HEENT: moist mucous membranes. Mild swelling to the right upper eyelid smooth EOM and PERRLA small pustule noted to the upper eyelash region Neck: Full range of motion. Respiratory: No respiratory distress speaking in full sentences Chest: No accessory muscle use. Cardiovascular: Appears well perfused Neurologic: Oriented x4. Psychiatric: Normal mood and affect. Skin: Normal color, warm and dry. No edema, no ecchymosis. Progress Results/Orders Results/Orders Completed Orders - JAMAICA STANLEY [employer] Ciprofloxacin Ophth Drops (Ciloxan 0.3% (08/26/25 14:15) Vital Signs 08/26/25 08/26/25 12:53 14:25 Temp 98.2 98.2 Pulse 102 Resp 16 B/P (MAP) 159/63 Pulse Ox 94 O2 Flow Rate 0 Medical Decision Making Additional information obtaine: N/A Findings Small external stye noted to the upper eyelid. Antibiotic eyedrops warm compresses discussed. Patient to follow up with primary care Ear Diff. Dx: Considerations: Unlikely: Abrasion, Cerumen impaction, Foreign body, Otitis externa, Barotrauma, Otitis media, Perforation, Referred pain- dental, Referred pain-pharyngitis, Referred pain-sinusitis, Referred pain-TMJ syn., Tympanic Membrane Injury, Other Eye Diff. Dx: Considerations: Include: Foreign body-lid, Hordeolum, Other Nose Diff. Dx: Considerations: Unlikely: Abrasion, Anterior nasal bleed, Avulsion, Contusion, Coagulopathy, Fracture-nasal bone, Fracture-septum, Hypertension, Laceration, Other, Posterior nasal bleed, Retained foreign body, Septal hematoma Tooth Diff. Dx: Considerations: Unlikely: Alveolar fracture, Aveolar osteitis, ANUG, Facial cellulitis, Periapical abscess, Periodontal abscess, Post- extraction bleeding, Pulpitis, Trigeminal neuralgia, Tooth-avulsion, Tooth- eruption, Tooth-fracture, Tooth-subluxation, Other Throat Diff Dx: Considerations: Unlikely: AIDS, Epiglottitis, Esophageal candidiasis, Hand foot mouth disease, Herpangina, Herpetic stomatitis, Herpes simplex, Infection mononucleosis, Immunodeficiency, Ilya's angina, Peritonsillar abscess, Peritonsillar cellulitis, Pharyngitis-diphtheria, Pharyngitis-strepococcal, Pharyngitis-viral, Thrush, URI, Other Departure Time of Disposition: 14:12 Disposition: 01 HOME / SELF CARE / HOMELESS Impression: Primary Impression: Hordeolum externum of right upper eyelid Condition: Stable Discharge Instructions: Sty Additional Instructions: Take antibiotics as prescribed and follow up with primary care. Referrals: NO PRIMARY CARE PROVIDER (PCP) Prescriptions Ciprofloxacin Hcl Ophth* (Ciloxan 0.35 Ophth Drops*) 2.5 Ml Bottle 1 DROP RIGHTEYE Q6H for 7 Days, #5 ML Prov: JAMAICA STANLEY NP 08/26/25 Education Educated: Patient Educated regarding: diagnosis, treatment, need for follow up Signature Scribe Signature: No scribe Attestation: The note accurately reflects work and decisions made by me.Jamaica MOORE 08/26/25 14:13 JAMAICA STANLEY NP Aug 26, 2025 14:13
[2025-08-26] MEDS: ciprofloxacin 0.3% 2.5ml ophthalmic solution RIGHTEYE ONE (14:22)
[2025-08-26 14:25] VITALS: TEMP 98.2
== END 2025-08-26 14:25 | disposition home or self-care (01) ==
LOC: ER 12:50
DX: H00.011 Hordeolum externum right upper eyelid (principal); E11.9 Type 2 diabetes mellitus without complications; F31.9 Bipolar disorder, unspecified; E78.00 Pure hypercholesterolemia, unspecified; E03.9 Hypothyroidism, unspecified; G89.29 Other chronic pain; I10 Essential (primary) hypertension; Z88.5 Allergy status to narcotic agent; Z90.710 Acquired absence of both cervix and uterus; Z88.1 Allergy status to other antibiotic agents; Z88.8 Allergy status to other drugs, medicaments and biological substances; Z79.82 Long term (current) use of aspirin; Z79.899 Other long term (current) drug therapy; Z98.51 Tubal ligation status; Z98.890 Other specified postprocedural states
CPT/HCPCS: 99283